=== PATIENT | female | born 1995 | race Caucasian/White ===

== ENCOUNTER 2023-07-31 18:00 | Outpatient (CLI) | payer BC ==
--- NOTE | 2023-08-01 20:15 | XRAY Report ---
PROCEDURE: Wrist 1-2V RT INDICATIONS: PAIN IN RIGHT WRIST TECHNIQUE: 2 views of the wrist were acquired. COMPARISON: None. FINDINGS: Bones: No fractures or dislocations. No suspicious bony lesions. Soft tissues: No suspicious soft tissue calcifications or masses. IMPRESSION: No visualized acute fracture or dislocation. However, occult injury cannot be excluded. Recommend [place] rt interval imaging follow-up in 7-10 days as clinically indicated for additional evaluation. Reviewed by: Diamante Gage MD on 08/01/2023 8:14 PM PDT Approved by: Diamante Gage MD on 08/01/2023 8:14 PM PDT Station ID: [id number]
== END 2023-07-31 18:01 | disposition home or self-care (01) ==
LOC: DI 18:00
PROVIDERS: ATTEND Nurse Practitioner
DX: M25.531 Pain in right wrist (principal)

== ENCOUNTER 2023-11-12 07:30 | Outpatient (CLI) | payer BC | END 2023-11-12 07:45 | disposition home or self-care (01) | LOC: LAB.N 07:30 | PROVIDERS: ATTEND Physician Assistant Medical | DX: N39.0 Urinary tract infection, site not specified (principal) | CPT/HCPCS: 87086 ==